=== PATIENT | female | born 1960 | race Caucasian/White ===

== ENCOUNTER → 2017-03-05 | Outpatient (CLI) | payer OTHER | END | disposition home or self-care (01) | LOC: CFH 12:30 | PROVIDERS: ATTEND Nurse Practitioner | DX: N64.4 Mastodynia (principal) | CPT/HCPCS: 76642; G0204 ==

== ENCOUNTER → 2017-05-30 | Outpatient (CLI) | payer OTHER | LOC: CFH 12:38 | PROVIDERS: ATTEND Internal Medicine | DX: R05 Cough (principal) | CPT/HCPCS: 71020 ==